=== PATIENT | female | born 1955 | race Caucasian/White ===

== ENCOUNTER 2018-06-18 18:53 | Emergency (ER) | payer OTHER, MEDICARE ==
[~2018-06-18] VITALS: Ht 167.6 cm; Wt 90.7 kg
[2018-06-18 19:10] LABS: BASOPHILS ABSOLUTE AUTO 0.05 K/mm3 (0.00-0.23); BASOPHILS PERCENT AUTO 1 % (0-2); EOSINOPHILS ABSOLUTE AUTO 0.06 K/mm3 (0.00-0.68); EOSINOPHILS PERCENT AUTO 1 % (0-6); Hematocrit 42.2 % (33.0-51.0); Hemoglobin 13.2 g/dL (11.5-16.0); IMMATURE GRAN ABSOLUTE AUTO 0.07 K/mm3 (0.00-0.10); IMMATURE GRAN PERCENT AUTO 1 % (0-1); LYMPHOCYTES ABSOLUTE AUTO 1.79 K/mm3 (0.84-5.20); LYMPHOCYTES PERCENT AUTO 17 % (21-46); MONOCYTES ABSOLUTE AUTO 0.94 K/mm3 (0.16-1.47); MONOCYTES PERCENT AUTO 9 % (4-13); Mean Corpuscular HGB 28.8 pg (26.0-34.0); Mean Corpuscular HGB Conc 31.3 g/dL (31.5-36.5); Mean Corpuscular Volume 92 fL (80-100); Mean Platelet Volume 10.3 fL (9.1-12.4); NEUTROPHILS ABSOLUTE AUTO 7.89 K/mm3 (1.96-9.15); NEUTROPHILS PERCENT AUTO 73 % (41-73); Platelet Count 326 K/mm3 (150-400); RDW Coefficient Variation 13.3 % (11.7-14.2); RDW Standard Deviation 45.2 fL (35.1-46.3); Red Blood Cell Count 4.58 M/mm3 (3.80-5.20)
[2018-06-18 19:30] LABS: Alanine Aminotransfer (ALT/SGP 47 U/L (12-78); Albumin, Blood 3.2 g/dL (3.4-5.0); Albumin/Globulin Ratio 0.9 (0.8-1.8); Alk Phos 71 U/L (50-136); Anion Gap 12 mmol/L (6-16); Aspartate Aminotrans (AST/SGOT 32 U/L (12-37); Bilirubin, Total 1.4 mg/dL (0.1-1.0); Blood Urea Nitrogen 18 mg/dL (8-24); Bun/Creatinine Ratio 17.3 (12.0-20.0); CO2, Blood 24 mmol/L (21-32); Calcium, Blood 9.6 mg/dL (8.5-10.1); Chloride, Blood 108 mmol/L (98-108); Creatinine, Blood 1.04 mg/dL (0.40-1.00); Ethanol (Alcohol), Blood, Med <3 mg/dL; Globulin, Blood 3.7 g/dL (2.2-4.0); Glomerular Filtration Rate 57 (60-); Glucose, Blood 140 mg/dL (70-99); Potassium, Blood 3.4 mmol/L (3.5-5.5); Sodium, Blood 144 mmol/L (136-145); Total Protein, Blood 6.9 g/dL (6.4-8.2)
[2018-06-18 19:57] LABS: International Normalized Ratio 1.08; Prothrombin Time Results 11.4 Sec (9.7-11.5)
[2018-06-18 20:15] LABS: U Amphetamine Screen Not Detected; U Barbituate Screen Not Detected; U Benzodiazapine Screen Not Detected; U Buprenorphine Screen Not Detected; U Cannabinoids Screen Not Detected; U Cocaine Screen Not Detected; U Methadone Screen Not Detected; U Methamphetamine Screen Not Detected; U Opiates Screen Not Detected; U Oxycodone Screen Not Detected; U Phencyclidine Screen Not Detected; U Propoxyphene Screen Not Detected
[2018-06-18 20:44] LABS: Free Thyroxine 2.13 ng/dL (0.70-1.60)
[2018-06-18 20:47] LABS: Thyroid Stimulating Hormone 2.94 uIU/mL (0.360-4.800)
[2018-06-19] MEDS ORDERED: CHOL10002 PO (02:58)
[2018-06-19] MEDS ORDERED: LEVSOD112 PO (02:59)
[2018-06-19] MEDS ORDERED: FISH OIL 1,2001 EACH PO (02:59)
[2018-06-19] MEDS ORDERED: NITR100CA PO (03:00)
[2018-06-19] MEDS ORDERED: PRAZ1 PO (03:00)
[2018-06-19] MEDS ORDERED: Coq-1030 MG PO (03:01)
== END 2018-06-18 21:02 | disposition short-term general hospital (02) ==
LOC: ER 18:53
PROVIDERS: Emergency Medicine
DX: I63.9 Cerebral infarction, unspecified (principal); I48.91 Unspecified atrial fibrillation; E11.9 Type 2 diabetes mellitus without complications; E03.9 Hypothyroidism, unspecified; F32.9 Major depressive disorder, single episode, unspecified; F25.9 Schizoaffective disorder, unspecified
CPT/HCPCS: 70496; 70498; 71045; 80053; 84439; 84443; 85025; 85610; 85730; 93005; 93010; 96365-59; 96366-59; 96368; 99285-25; G0480; J2997; Q3014; Q9967

== ENCOUNTER 2018-11-06 01:54 | Emergency (ER) | payer MEDICARE, OTHER ==
[~2018-11-06] VITALS: Ht 154.9 cm; Wt 59.0 kg
[~2018-11-06 01:54] MED LIST: CHOL10002 PO; Coq-1030 MG PO; FISH OIL 1,2001 EACH PO; LEVSOD112 PO; NITR100CA PO; PRAZ1 PO
[2018-11-06] MEDS ORDERED: ELIQUIS2.5 MG PO (02:18)
[2018-11-06] MEDS ORDERED: FURO20 PO (02:18)
[2018-11-06] MEDS ORDERED: METO25ER PO (02:19)
== END 2018-11-06 03:20 | disposition home or self-care (01) ==
LOC: ER 01:54
DX: R00.0 Tachycardia, unspecified (principal); E11.9 Type 2 diabetes mellitus without complications; E03.9 Hypothyroidism, unspecified; Z86.73 Personal history of transient ischemic attack (TIA), and cerebral infarction without residual deficits; Z88.8 Allergy status to other drugs, medicaments and biological substances; Z88.1 Allergy status to other antibiotic agents; Z88.5 Allergy status to narcotic agent; Z79.899 Other long term (current) drug therapy
CPT/HCPCS: 99283

== ENCOUNTER 2018-11-16 09:31 | Inpatient (IN) | payer MEDICARE, OTHER ==
[~2018-11-16] VITALS: Ht 152.4 cm; Wt 57.0 kg
[~2018-11-16 09:31] MED LIST changes: +ELIQUIS2.5 MG PO; +FURO20 PO; +METO25ER PO
[2018-11-16 10:36] LABS: BASOPHILS ABSOLUTE AUTO 0.02 K/mm3 (0.00-0.23); BASOPHILS PERCENT AUTO 0 % (0-2); EOSINOPHILS PERCENT AUTO 0 % (0-6); Hemoglobin 14.8 g/dL (11.5-16.0); IMMATURE GRAN ABSOLUTE AUTO 0.04 K/mm3 (0.00-0.10); IMMATURE GRAN PERCENT AUTO 1 % (0-1); LYMPHOCYTES PERCENT AUTO 22 % (21-46); MONOCYTES ABSOLUTE AUTO 0.33 K/mm3 (0.16-1.47); MONOCYTES PERCENT AUTO 6 % (4-13); Mean Corpuscular HGB 30.9 pg (26.0-34.0); Mean Corpuscular HGB Conc 32.2 g/dL (31.5-36.5); Mean Corpuscular Volume 96 fL (80-100); Mean Platelet Volume 10.4 fL (9.1-12.4); NEUTROPHILS ABSOLUTE AUTO 4.19 K/mm3 (1.96-9.15); NEUTROPHILS PERCENT AUTO 71 % (41-73); Platelet Count 88 K/mm3 (150-400); RDW Coefficient Variation 14.2 % (11.7-14.2); Red Blood Cell Count 4.79 M/mm3 (3.80-5.20); White Blood Cell Count 5.88 K/mm3 (4.00-11.30)
[2018-11-16 10:42] LABS: Source, Urine Catheter
[2018-11-16 10:56] LABS: Albumin, Blood 3.3 g/dL (3.4-5.0); Albumin/Globulin Ratio 1.1 (0.8-1.8); Bilirubin, Total 3.7 mg/dL (0.1-1.0); Bun/Creatinine Ratio 36.8 (12.0-20.0); Calcium, Blood 9.2 mg/dL (8.5-10.1); Creatinine, Blood 1.17 mg/dL (0.40-1.00); Globulin, Blood 3.1 g/dL (2.2-4.0); Potassium, Blood 2.5 mmol/L (3.5-5.5); Total Protein, Blood 6.4 g/dL (6.4-8.2)
[2018-11-16 11:07] LABS: Appearance, Urine Cloudy (Clear); Blood, Urine 4+ (Neg); Color, Urine Amber (P-Yellow); Glucose Qualitative, Urine Neg (Neg); Ketones, Urine 2+ (Neg); Leukocyte Esterase, Urine 3+ (Neg); Nitrite, Urine Neg (Neg); Protein, Urine 2+ (Neg); Specific Gravity, Urine 1.015 (1.003-1.022); Urobilinogen, Urine 2+ (Normal)
[2018-11-16 11:33] LABS: Bilirubin, Urine 1+ (Neg)
[2018-11-16 11:36] LABS: Bacteria Many /hpf; Squamous Epithelial Cells Rare /hpf (Few); White Blood Cells, Urine TNTC /hpf (0-5)
[2018-11-16 16:40] LABS: Hematocrit 40.9 % (33.0-51.0); Hemoglobin 13.5 g/dL (11.5-16.0)
--- NOTE | 2018-11-16 17:52 | NUR ---
SHIFT SUMMARY 1340 PT RECEIVED FROM ER. ALERT AND ORIENTED TO SELF AND PLACE. PT NODS YES AND NO APPROPRIATELY. USES PEN AND PAPER TO COMMUNICATE MOST NEEDS, BUT IS ABLE TO MAKE SOME SOUNDS TO COMMUNICATE NEEDS. FOLLOWING COMMANDS APPROPRIATELY. C/O ABDOMINAL PAIN, PT REPOSITIONED FOR COMFORT. PT AFIB ON TELEMETRY RATE 100s-140s, CARDIZEM GTT STARTED, VSS, RUNNING AT 10 ML/HR, HEART RATE DECREASED TO 100s-110s ON GTT. STAGE 2 PRESSURE ULCER TO COCCYX, PHOTO TAKEN, MEPILEX APPLIED. WEAKNESS NOTED TO BILATERAL UPPER EXTREMITIES AND BILATERAL LOWER EXTREMITIES. CAREGIVER AND FRIEND AT BEDSIDE THIS AFTERNOON. PT SHOWED THIS RN HER POLST. POINTED OUT THAT IT STATES "DO NOT REMOVE FROM HOME". PT INDICATES THAT SHE DID NOT WANT TO COME TO THE HOSPITAL, PT WANTS TO STAY HOME AND NOT RECEIVE CARE. PT AGREEABLE TO RECEIVING CARE AT THIS TIME, BUT WANTS TO DISCUSS PALLIATIVE CARE OPTIONS.
--- NOTE | 2018-11-16 19:47 | NUR ---
CARE ASSUMPTION PT ALERT & ORIENTED, UNABLE TO VERBALLY COMMUINICATE ADEQUATELY. PT HOWEVER IS ABLE TO ANSWER Y/N Q'S APPROPRIATELY. POLST REVIEWED W/ PT ABOUT "DO NOT TAKE FROM HOME" WISH WRITTEN ON POLST. PT NODS HEAD "YES" TO THIS DESIRE STILL BEING CURRENT. PT NODS HEAD "YES" TO COMING TO THE HOSPITAL W/OUT WANTING TO COME. PT ASKING TO GO HOME. DISCUSSED W/ PT THAT DISCHARGE MAY NOT BE ABLE TO TAKE PLACE UNTIL TOMORROW W/ PROPER ARRANGEMENTS. PT SIGHED HEAVILY AND SLOUCHED HEAD IN RESPONSE. WILL PLAN TO WORK TOWARDS SAFE DISCHARGE HOME FOR PT. WILL CONTINUE TO MONITOR AND PROVIDE CARE ACCORDINGLY IN MEANTIME.
--- NOTE | 2018-11-16 23:13 | NUR ---
CALL TO [facility] OVERTON TO REPORT PT POLST STATUS W/ REMARK "DO NOT TAKE FROM HOME!" AND PT'S CONTINUED CURRENT WISHES TO RETURN HOME. OP[facility] OVERTON AGREEABLE TO DC PT, HOWEVER, PT IS NOT MOBILE AND PT IS UNDERSTANDING TO WAIT UNTIL TOMORROW TO DC HOME FOR PROPER DISCHARGE/TRANSPORTATION ARRANGEMENTS TO BE MADE DURING DAY HOURS PER [facility] OVERT[facility].
[2018-11-17 05:35] LABS: BASOPHILS ABSOLUTE AUTO 0.01 K/mm3 (0.00-0.23); BASOPHILS PERCENT AUTO 0 % (0-2); EOSINOPHILS ABSOLUTE AUTO 0.01 K/mm3 (0.00-0.68); EOSINOPHILS PERCENT AUTO 0 % (0-6); Hematocrit 38.1 % (33.0-51.0); Hemoglobin 12.6 g/dL (11.5-16.0); IMMATURE GRAN ABSOLUTE AUTO 0.03 K/mm3 (0.00-0.10); IMMATURE GRAN PERCENT AUTO 1 % (0-1); LYMPHOCYTES ABSOLUTE AUTO 1.42 K/mm3 (0.84-5.20); LYMPHOCYTES PERCENT AUTO 29 % (21-46); MONOCYTES ABSOLUTE AUTO 0.24 K/mm3 (0.16-1.47); MONOCYTES PERCENT AUTO 5 % (4-13); Mean Corpuscular HGB 30.9 pg (26.0-34.0); Mean Corpuscular HGB Conc 33.1 g/dL (31.5-36.5); Mean Platelet Volume 10.8 fL (9.1-12.4); NEUTROPHILS ABSOLUTE AUTO 3.12 K/mm3 (1.96-9.15); NEUTROPHILS PERCENT AUTO 65 % (41-73); Platelet Count 62 K/mm3 (150-400); RDW Coefficient Variation 14.6 % (11.7-14.2); RDW Standard Deviation 49.7 fL (35.1-46.3); Red Blood Cell Count 4.08 M/mm3 (3.80-5.20); White Blood Cell Count 4.83 K/mm3 (4.00-11.30)
[2018-11-17 05:39] LABS: Mean Corpuscular Volume 93 fL (80-100)
[2018-11-17 06:06] LABS: Anion Gap 11 mmol/L (6-16); Blood Urea Nitrogen 31 mg/dL (8-24); Bun/Creatinine Ratio 36.7 (12.0-20.0); CO2, Blood 29 mmol/L (21-32); Calcium, Blood 8.7 mg/dL (8.5-10.1); Chloride, Blood 104 mmol/L (98-108); Creatinine, Blood 0.85 mg/dL (0.40-1.00); Glomerular Filtration Rate >60 (60-); Glucose, Blood 73 mg/dL (70-99); Potassium, Blood 3.3 mmol/L (3.5-5.5); Sodium, Blood 144 mmol/L (136-145)
--- NOTE | 2018-11-17 06:16 | NUR ---
SHIFT SUMMARY PT A&O, CONTINUES TO BE ABLE TO COMMUNICATE NEEDS W/ POINTING, SAYING SOME WORDS, AND ANSWERING Y/N Q'S. MONITOR SHOWS AFIB, HR AVERAGING 80-100. CARDIZEM GTT INFUSING @ 5 MG/HR. NS KCL GTT INFUSING PER ORDERS. ATTEMPT TO GIVE PT SMALL SIP OF WATER W/ PT COUGH IN RESPONSE. NO FURTHER ATTEMPTS MADE FOR ORAL INTAKE, AWAITING ST EVAL OR DISCHARGE HOME D/T PT POLST STATUS AND DESIRE TO NOT BE REMOVED FROM HOME, SEE PREVIOUS NOTE. PT HAVING BLOODY DISCHARGE W/ URINE OUTPUT. PT HAVING EPISODES OF CONTINENCE AND INCONTINENCE. MEPILEX DRESSING IN PLACE TO COCCYX. WILL CONTINUE TO MONITOR AND PROVIDE CARE UNTIL REPORT OFF TO DAY SHIFT RN.
--- NOTE | 2018-11-17 10:50 | NUR ---
Initial Visit: Pt admitted for bleeding per rectum. 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 Pt is alert, oriented. She has difficulty speaking, but is able to say some words occasionally and she is able to write on a notepad to communicate. Significant other, Toby, is present at bedside and very concerned for her. She also has some other caregiver support through local agency. Nae, social media specialist, is bedside and together with the pt and significant other, reviewed current treatment and goals of care. Pt expresses that she does not want to be in the hospital, she would like to go home. She requests the IV fluids be discontinued. She communicates this with a mixture of words and of writing on her pad of paper. She agrees to hospice care so that she can remain at home and not return to the hospital for any other medical interventions. She is declining treatment for her current illness. Reviewed with Toby. He states that he is struggling to take care of her at home, as he does not know how to help her or how to be a caregiver. He states that he is doing the best that he can and he requests further instruction on how to care for her. Instructed to watch nurses care for her while in the hospital, and to request instruction and observe care with her home caregivers. Also instructed that hospice will be able to do some coaching in the home setting. Reviewed hospice philosophy, availability by phone 24/09. Instructed that he can call with questions if needed any time of the day or night. This seems to alleviate his stress. He is expressing distress over her care and changing needs. Call placed to Angela EASTON, . This is the pt's daughter. She lives out of state, but has seen her mother in the last 4 weeks. She states that pt has been with her significant other for 8-9 years. They were in a spiritism, but not legally . She states that the pt's decisions so far this hospitalization are within the pt's prior stated wishes. After the pt's stroke in June of this year, pt transfered all medical paperwork to the state [facility] [place], previously filed in [place]. POLST form is filled out from after pt's stroke. She is in support of pt's decisions at this time. No other concerns. Case reviewed with Dianelys Tyler RN.
--- NOTE | 2018-11-17 11:49 | NUR ---
Upon recieving an admit referral for spiritual care, I visited patient. I asked patient how things were going and patient wrote on a piece of mark"go home" I asked patient what brought herin to the hospital, she wrote "stool." I asked if she hand bloody stools and she shook her head affirmingly. I asked patient is she had a mosque background and she wrote "Anabaptist." I asked patient if I could pray for her and she nodded and whispered "Yes." I gladly provided prayer. Patient whispered, "thank you." I will continue to remain available to patient and family.
--- NOTE | 2018-11-17 12:55 | NUR ---
PT EXPRESSED ANXIETY ABOUT BEING IN THE HOSPITAL, PT REASSURED THAT ATTEMPTS ARE BEING MADE TO GET HOSPICE IN PLACE PER HER REQUESTS YESTERDAY. PT EXPRESSED UNDERSTANDING. PT IS DRESSED IT ALSO DECREASED ANXIETY ABOUT HER STAY. VITAL SIGNS ASSESSED WITH AGREEANCE FROM PT, PT IS EDUCATED ABOUT VITALS AND THEY ARE WRITTEN DOWN ON HER TABLET SHE IS USING TO COMMUNICATE PER HER REQUEST
--- NOTE | 2018-11-17 16:13 | NUR ---
PT LYING IN BED, OFFERED TO TURN TV ON PT AGREES, PT FLIPPING THROUGH CHANNELS. SHE DENIES FURTHER NEEDS AT THIS TIME. PCT HAS REPOSITIONED PT IN BED, PT STS THAT SHE IS COMFORTABLE.
--- NOTE | 2018-11-17 16:47 | NUR ---
PT HAS REFUSED VITAL SIGNS
--- NOTE | 2018-11-17 17:26 | NUR ---
UPON WAKING THIS AM, PT ALERT ANSWERING QUESTIONS WITH "YES" OR "NO" NOD. PT STS THAT SHE SLEPT WELL T/O THE NIGHT. PT WITH NOTED WEAKNESS TO ALL FOUR EXTREMETIES WITH DECREASED ROM, BUT IS ABLE TO MOVE ALL EXTREMEITIES INDEPENDANTLY. PT'S WOUND TO COCCYX REASSESSED, GRADE 2 PRESSURE ULCER NOTED BUT APPEARS TO HAVE IMPROVED SINCE ASSESSING WOUND LAST NOC. PT'S ATTENDS CHANGED NOTED RED TO TEA COLORED URINE NOTED TO ATTENDS. NEW MEDIPLEX PLACED. PT IS ABLE TO ASSIST WITH ATTENDS CHANGE. PAUL URBANO DC SALES REPRESENTATIVE [employer] IN TO SEE PT, PT EXPRESSED HER DESIRE TO BE PLACED ON HOSPICE CARE, S/O IS AT THEBEDSIDE DURING CONVERSATION WITH PT ABOUT PLACING HER ON COMFORT/HOSPICE CARE, S/O DID NOT EXPRESS ANY FURTHER CONCERNS ABOUT THIS. PT EXPRESSED DESIRE TO CEASE ALL FLUIDS AND MEDICATIONS AT THIS TIME. PT AGREES TO ALLOW MONITORING OF VITALS. PAUL Knight/Bentley SALES REPRESENTATIVE [employer] MAKING ARRANGEMENTS FOR HOSPICE AND HOME HEALTH. DR WAGNER ASKED S/O TO STEP OUTSIDE SO THAT SHE MAY DISCUSS PT'S RISK OF VIOLENCE, S/O EXPRESSED ANGER THAT HE WAS ASKED TO STEP OUT SIDE RAISED VOICE WITH STAFF BUT WAS QUICK TO CALM WHEN REDIRECTED. PT EXPRESSED THAT SHE FEELS SAFE AT HOME IN THE CARE OF S/O DENIES ANY INTERPERSONAL VIOLENCE. PT REMAINED ANXIOUS T/O THE DAY R/T DESIRE TO RETURN HOME, PT EDUCATED THOROUGHLY ABOUT PLAN OF CARE, PT AGREES AND EXPRESSED UNDERSTANDING OF TEACHING. S/O RETURNED HOME FOR THE DAY. PT REPOSITIONED T/O THE DAY FOR COMFORT, DENIED PAIN T/O DAY. PT REFUSED ALL ORAL CARE. PT REQUESTED FOOD AND DRINK, WHEN PROVIDED WITH FOOD AND DRINK PT IMMEDIATELY SPIT BOTH FOOD AND DRINK OUT. PT EXPRESSED THAT SHE WOULD LIKE TO BE DRESSED IN HER HOME CLOTHES, WHICH SHE WAS DRESSED AND THIS SEEMS TO HAVE DECREASED HER ANXIETY, SHE THEN AGREED TO WATCH TV INSTEAD OF SITTING QUIETLY IN ROOM. S/O RETURNED AROUND 1700, THIS RN AT BEDSIDE FOR VITALS PT IS NOW REFUSING VITAL SIGNS TO BE ASSESSED. S/O IS UPDATED, APPEARS TO BE VERY ATTENTIVE WITH PT. PT AND S/O DENY FURHTER NEEDS AT THIS TIME. A FEW MINUTES LATER PCT TO DESK NOTIFIED THIS RN THAT S/O BEGAN RAISING HIS VOICE WITH HER SHE WENT TO PROVIDE SEDSIDE CARE, THIS RN TO ROOM TO DISCUSS CONCERNS WITH S/O. UPON ENTERNING ROOM S/O BEGINS RAISING HIS VOICE WITH STAFF HE HAD TO TAKE A TAXI BACK TO SEE PT AND WAS NOT CALLED AND MADE AWARE THAT PT WOULD NOT BE D/C UNTIL TOMORROW. WHEN THIS RN ATTEMPTED TO EDUCATE S/O HE BEGAN MOCKING THIS RN AND ACCUSES STAFF OF ERASING HIS NUMBER FROM THE [employer] A FEW NUMBERS WERE MISSING FROM HIS NUMBER THAT HE HAD WRITTEN ON THE BOARD. THIS RN EDUCATED S/O THAT HIS BEHAVIOR WILL NOT BE TOLERATED, THAT THIS RN WILL HAPPILY DISCUSS D/C PLAN WITH HIM HE IS HER POA BUT NOT HE IS RAISING HIS VOICE AND SPEAKING ILL TO BOTH THIS RN AND PCT. S/O DOES CALM AND APOLOGIZE FOR HIS BEHAVIOR.
--- NOTE | 2018-11-18 02:30 | NUR ---
REPORT RECIEVED FROM DAPHNE ALEXU RN AND PT T/F TO ROOM 360 VIA BED. PT NODS YES/ NO TO Q'S AND ANSWERS OCCASIONALLY IN WHISPERED SUCCINT PHRASES. SHE DENIED PAIN/COMPLAINTS AND REFUSED WANTING SNACK OR WATER. WARM BLANKET WAS ACCEPTED AND PT REPOSITIONED FOR COMFORT. WCTM AND MEDICATE PER EMAR.
--- NOTE | 2018-11-18 02:50 | NUR ---
TRANFER NOTE ASSUMED CARE OF PT APPROXIMATELY 1900; REPOSITIONED TOLERATED; PT RESTED WELL BETWEEN INTERVENTIONS AND APPEARED COMFORTABLE; PT HAS MEPILEX IN PLACE ON COCCYX; TRANSFERED TO ROOM 360 AT APPROXIMATELY 0220 AND REPORT GIVEN TO TOREY TATE. ALL BELONGINGS AND PT'S WHEELCHAIR SENT W/PT.
--- NOTE | 2018-11-18 04:06 | NUR ---
REFUSED CARE OR TO BE TURNED AT THIS TIME.
--- NOTE | 2018-11-18 05:16 | NUR ---
MEPILEX CHANGED TO COCCYX DURING ATTENDS CHANGE AND REPOSITIONING. PT IS COMFORT CARE AND REFUSED RX'D AM LAB DRAW FROM LINE. WILL CLARIFY IF LABS SHOULD STILL BE ORDERED.
--- NOTE | 2018-11-18 05:24 | NUR ---
SUMMARY: PT REMAINS ON COMFORT CARE AND CONT'S TO BE SELECTIVE W/ADL'S, ATTENDS CHANGES AND REPOSITIONING. TURN SCHEDULE MAINTAINED TOLERATED AND PT WAS INCONTINENT OF URINE X1 SINCE ARRIVAL TO FLOOR W/MEPILEX AND ATTENDS CHANGED. WARM BLANKETS PROVIDED PER REQUEST. SHE MAKES NEEDS KNOWN W/WHISPERED SUCCINCT SPEECH AND YES/NO NODS. SHE REFUSED VITALS AND AM LABS TODAY. WILL CLARIFY IF THESE ARE STILL NEEDED SINCE PT IS COMFORT CARE. NO ACUTE CHANGES. WCTM AND REPORT TO DAY RN. PT WILL D/C ON HOSPICE WHEN ARRANGEMENTS MADE.
--- NOTE | 2018-11-18 12:27 | NUR ---
1151 PT DISCHARGED HOME VIA [facility]SP[facility]. POWER GLIDE REMOVED. D/C PAPERWORK SENT WITH [employer]ER. PT REFUSED MOST OF CARE FOOD AND FLUIDS THIS SHIFT. PT IN NEED OF ORAL CARE REFUSED CARE. PT REFUSED PO ANTIBIOTICS AND POTASSIUM TO BE FILLED AT PHARMACY FOR OUTPATIENT TREATMENT. PT PERSONAL W/C LEFT IN ROOM AFTER D/C, AMADO THE PT'S SPOUSE IS AWARE, STAFF IS ATTEMPTING TO FIND RESOURCE TO HAVE IT DELIVERED.
--- NOTE | 2018-11-18 13:40 | NUR ---
CASE MANAGEMENT TEAM HAS CALLED FOR TAXI TO ENGINEERING AND OPERATIONS DIRECTOR W/C AND TAKE TO PT'S RESIDENCE.
== END 2018-11-18 11:51 | disposition hospice, home (50) | DRG 378 ==
LOC: ER 09:31 → PCU 12:14 → MEDS 11-18 02:26 → ENPENDDIS 11-18 10:30 → MEDS 11-18 11:51
PROVIDERS: Internal Medicine; ADMIT Family Medicine
DX: K62.5 Hemorrhage of anus and rectum (principal); N17.9 Acute kidney failure, unspecified; N39.0 Urinary tract infection, site not specified; R65.10 Systemic inflammatory response syndrome (SIRS) of non-infectious origin without acute organ dysfunction; I48.2 Chronic atrial fibrillation; Z51.5 Encounter for palliative care; Z79.01 Long term (current) use of anticoagulants; E86.0 Dehydration; D69.6 Thrombocytopenia, unspecified; E87.6 Hypokalemia; E03.9 Hypothyroidism, unspecified; E83.39 Other disorders of phosphorus metabolism; I69.320 Aphasia following cerebral infarction; I12.9 Hypertensive chronic kidney disease with stage 1 through stage 4 chronic kidney disease, or unspecified chronic kidney disease; N18.3 Chronic kidney disease, stage 3 (moderate); F25.9 Schizoaffective disorder, unspecified; F41.8 Other specified anxiety disorders; Z66 Do not resuscitate; N32.3 Diverticulum of bladder; N21.0 Calculus in bladder; K76.0 Fatty (change of) liver, not elsewhere classified
CPT/HCPCS: 36415; 71046; 74176; 80053; 80069; 81001; 83735; 84443; 84484; 85014; 85018; 85025; 93005; 93010; 96361; 96365; 96367; 96375; 99285-25; C1751; J0696; J3480; J7120; P9612